=== PATIENT | male | born 1970 | race Asian ===

== ENCOUNTER 2019-10-07 12:21 | Emergency (ER) | payer SELFPAY ==
[~2019-10-07] VITALS: Ht 160 cm; Wt 47.3 kg
[2019-10-07] MEDS ORDERED: METHOCARBAMOL 500 MG TABLET PO ONE (13:15)
[2019-10-07] MEDS ORDERED: KETOROLAC TROMETHAMINE 60 MG/2 ML VIAL IM ONE (13:15)
[2019-10-07 14:20] VITALS: BP 139/86
== END 2019-10-07 14:44 | disposition home or self-care (01) ==
LOC: EMS 12:23
DX: S13.4XXA Sprain of ligaments of cervical spine, initial encounter (principal); S46.911A Strain of unspecified muscle, fascia and tendon at shoulder and upper arm level, right arm, initial encounter; M62.838 Other muscle spasm; X50.1XXA Overexertion from prolonged static or awkward postures, initial encounter; Y93.89 Activity, other specified; Y92.89 Other specified places as the place of occurrence of the external cause; Y99.8 Other external cause status
CPT/HCPCS: 96372; 99283; J1885

== ENCOUNTER 2020-02-20 11:58 | Emergency (ER) | payer MEDICAID ==
[~2020-02-20] VITALS: Ht 162.6 cm; Wt 68.2 kg
[2020-02-20 12:00] VITALS: BP 154/88
[2020-02-20] MEDS ORDERED: ERYTHROMYCIN 0.5% 3.5 GM TUBE OPHTHALMIC OINTMENT OD ONE (12:30)
[2020-02-20] MEDS ORDERED: ACETAMINOPHEN 500 MG TABLET PO ONE (12:30)
== END 2020-02-20 12:53 | disposition home or self-care (01) ==
LOC: EMS 11:59
DX: H10.9 Unspecified conjunctivitis (principal)